=== PATIENT | female | born 1970 | race Caucasian/White ===

== ENCOUNTER → 2018-03-30 | Outpatient (CLI) | payer OTHER | LOC: COL.RAD 10:11 | DX: K21.9 Gastro-esophageal reflux disease without esophagitis (principal); K58.9 Irritable bowel syndrome, unspecified; K59.8 Other specified functional intestinal disorders; K57.30 Diverticulosis of large intestine without perforation or abscess without bleeding; K63.9 Disease of intestine, unspecified | CPT/HCPCS: Q9967 ==

== ENCOUNTER → 2019-02-13 | Outpatient (CLI) | payer OTHER ==
[~2019-02-13] MED LIST: NO HOME MEDICATIONS
== END ==
LOC: MHCPAIN 13:36
DX: G89.29 Other chronic pain (principal); M79.2 Neuralgia and neuritis, unspecified
CPT/HCPCS: G0463